=== PATIENT | female | born 1945 ===

== ENCOUNTER 2021-04-05 05:48 | Day surgery (SDC) | payer OTHER ==
[~2021-04-05 05:48] MED LIST: BETIMOL5 ML OP; COZAAR25 MG PO; GABAPENTIN300 M2 PO; SIMBRINZA 1%-0.28 ML OP; SYNTHROID50 MCG PO; [UNRECOGNIZED DRUG - OTHER] OT
[2021-04-05] MEDS ORDERED: ULTRACET PO (09:08)
[2021-04-05] MEDS ORDERED: DUI500 PO (09:08)
== END 2021-04-05 16:40 | disposition home or self-care (01) ==
LOC: CIR.AMB 05:48
PROVIDERS: ATTEND Orthopaedic Surgery Sports Medicine
DX: M23.322 Other meniscus derangements, posterior horn of medial meniscus, left knee (principal); M23.352 Other meniscus derangements, posterior horn of lateral meniscus, left knee; M65.862 Other synovitis and tenosynovitis, left lower leg; Z20.822 Contact with and (suspected) exposure to COVID-19